=== PATIENT | female | born 1925 | race Caucasian/White ===

== ENCOUNTER 2016-04-17 14:24 | Outpatient (CLI) | payer MEDICARE, OTHER ==
--- NOTE | 2016-04-18 17:34 | Mammography Report ---
DIGITAL SCREENING MAMMOGRAM: 04/17/2016 CLINICAL INDICATION: An 89-year-old with personal history of left breast cancer status post mastecto my for screening. TECHNIQUE: Right CC and MLO views were obtained. The right breast again demonstrates scattered fibroglandular densities. Coarse and punctate, typical ly benign calcifications are present. No suspicious masses, clustered microcalcifications, or region s of architectural distortion are identified. IMPRESSION: BENIGN FINDINGS. RECOMMENDATION: ROUTINE ANNUAL SCREENING UNLESS OTHERWISE CLINICALLY INDICATED. BIRADS CATEGORY: 2, BENIGN FINDINGS. STANDARD QUALIFYING STATEMENTS 1. This examination was reviewed with the aid of Computed-Aided Detection (CAD). 2. A negative or benign imaging report should not delay biopsy if clinically suspicious findings are present. Consider surgical consultation if warranted. More than 5% of cancers are not identified b y imaging. 3. Dense breasts may obscure an underlying neoplasm. JOB #: [id number] EXT JOB #:[id number]
== END 2016-04-17 14:25 | disposition home or self-care (01) ==
LOC: DI.N 14:24
PROVIDERS: ATTEND Family Medicine
DX: Z12.31 Encounter for screening mammogram for malignant neoplasm of breast (principal); Z85.3 Personal history of malignant neoplasm of breast; Z90.12 Acquired absence of left breast and nipple